=== PATIENT | male | born 1945 | race Caucasian/White ===

== ENCOUNTER 2017-06-30 06:44 | Observation (INO) | payer OTHER ==
[2017-06-30] MEDS ORDERED: ACETAMINOPHEN 500 MG TAB PO ONE (07:07)
[2017-06-30] MEDS ORDERED: ceFAZolin 2 GM/SWFI 2 GM/20 ML SYR IVP ONE (07:07)
[2017-06-30] MEDS ORDERED: LIDOCAINE 1% 2 ML INJ ID PRN (07:08)
[2017-06-30] MEDS ORDERED: LR 1,000 ML IV ONE (07:08)
--- NOTE | 2017-06-30 07:23 | PDGENHP ---
History and Physical - Chief Complaint Low back pain, painful hardware - History of Present Illness Patient is a 71 year old male with a history of L3-[address] Soares. He has been having terrible lower back pain and underwent a hardware block with Dr Ignacio. His block was temporarily effective and then his pain returned. He underwent a recent CT of the lumbar spine at [facility] which showed evidence of fusion L3-5. His pain is in his right lower back, he denies any constant radicular symptoms. History Information - Allergies/Home Medication List Allergies/Adverse Reactions: No Known Allergies Allergy (Verified 06/24/17 10:26) Home Medications: Aspirin [Aspirin 81mg (*)] 81 mg PO DAILY 06/19/17 [Last Taken 06/24/17] Atorvastatin Calcium [Lipitor 40 mg (*)] 40 mg PO DAILY 06/19/17 [Last Taken ] Gabapentin [Neurontin 300 MG (*)] 300 mg PO TID 06/19/17 [Last Taken 06/30/17] Hydrochlorothiazide [HCTZ (*)] 25 mg PO DAILY 06/19/17 [Last Taken 06/29/17] Irbesartan [Avapro 300 mg] 300 mg PO DAILY 06/19/17 [Last Taken 06/29/17] Levothyroxine [Synthroid 100 mcg (*)] 100 mcg PO DAILY06 06/19/17 [Last Taken ] Metoprolol Tartrate [Lopressor 50 mg (*)] 50 mg PO BID 06/19/17 [Last Taken ] [place]-3 Fatty Acids [Fish Oil 1000 mg (*)] 1,000 mg PO DAILY 06/19/17 [Last Taken 06/24/17] Omeprazole [Prilosec 20 mg] 20 mg PO DAILY 06/19/17 [Last Taken 06/30/17] amLODIPine BESYLATE [Norvasc 10 mg (*)] 10 mg PO DAILY 06/19/17 [Last Taken ] tiZANidine HCL [Zanaflex 2MG (*)] 4 mg PO DAILY 06/19/17 [Last Taken Unknown] I have personally reviewed and updated: medical history, social history, surgical history - Past Medical History no pertinent PMH - Surgical History Reports: neurological surgery - Social History Smoking Status: Former smoker Review of Systems Review of Systems: ROS: 10pt was reviewed & negative except for what was stated in HPI & below Physical Exam Physical Exam: AxO x3 PERRLA EOMI 5/5 BUE, BLE Sensation intact to light touch BLE Resp: normal work of breathing BP 151/79 HR 66 RR 16 O2 sat 96% on room air Constitutional: no apparent distress Eyes: PERRL Ears, Nose, Mouth, Throat: moist mucous membranes Cardiovascular: regular rate and rhythym Musculoskeletal: full muscle strength Neurologic: AAOx3, sensation intact bilaterally Assessment & Plan Assessment: Patient is a 71 year old male with history of L3-[address] Soares presents for L3-5 hardware removal. Plan: Patient is a 71 year old male with history of L3-[address] Soares. He has been experiencing painful lower back problems and underwent a hardware block which was effective with Dr Ignacio. CT lumbar spine performed at [facility] showed solid fusion of L3-5. He wishes to proceed with hardware removal with Dr Soares. Risks, benefits were discussed and consents were signed. Patient will be out-patient for this procedure and follow up with us in the office in 2 weeks for a post op visit.
[2017-06-30] MEDS ORDERED: THROMBIN (BOVINE) 5,000 UNIT VIAL TP ONE (07:32)
[2017-06-30] MEDS ORDERED: BACITRACIN 50,000 UNITS/10 ML SYR IRR ONE ×2 (07:33)
[2017-06-30] MEDS ORDERED: BUPIVACAINE 0.25% 30 ML SDV ONE ×2 (07:33→08:36)
[2017-06-30] MEDS ORDERED: ALBUMIN 5% 250 ML BOTTLE IV ONE (08:00)
[2017-06-30] MEDS ORDERED: DEXMEDETOMIDINE/NS 4MCG/ML 50 ML BTL IV ONE (08:01)
[2017-06-30] MEDS ORDERED: fentaNYL 100 MCG/2 ML INJ ONE (08:03)
[2017-06-30] MEDS ORDERED: MIDAZOLAM 2 MG/2 ML VIAL ONE (08:03)
[2017-06-30] MEDS ORDERED: PROPOFOL/EMULSION 500 MG/50 ML BOTTLE IV ONE (08:03)
[2017-06-30] MEDS ORDERED: ONDANSETRON 4 MG/2 ML VIAL ONE (09:14)
[2017-06-30] MEDS ORDERED: METOPROLOL TARTRATE 5 MG/5 ML INJ ONE (09:14)
[2017-06-30] MEDS ORDERED: LIDOCAINE 2% 5 ML SDV ONE (09:14)
[2017-06-30] MEDS ORDERED: SUGAMMADEX SODIUM 200 MG/2 ML VIAL IVP ONE (09:14)
[2017-06-30] MEDS ORDERED: ROCURONIUM 50 MG/5 ML VIAL ONE (09:14)
--- NOTE | 2017-06-30 09:21 | PDANEPAE ---
ANE Past Medical History - Cardiovascular History Hx Hypertension: Yes Hx Arrhythmias: No Hx Chest Pain: No Hx Coronary Artery / Peripheral Vascular Disease: Yes Hx CHF / Valvular Disease: No Hx Palpitations: No Cardiovascular History Comment: htn. hyperlipidemia. cad. pvd. hx of cabg 5v. stent x1. cough d/t LEVON inhibitor - Pulmonary History Hx COPD: No Hx Asthma/Reactive Airway Disease: No Hx Recent Upper Respiratory Infection: No Hx Oxygen in Use at Home: No Hx Sleep Apnea: No Sleep Apnea Screening Result - Last Documented: Positive Pulmonary History Comment: yan triggers - Neurologic History Hx Cerebrovascular Accident: Yes Hx Seizures: No Hx Dementia: No Neurologic History Comment: hx of TIA - Endocrine History Hx Diabetes: No Endocrine History Comment: hypothyroidism - Renal History Hx Renal Disorders: No - Liver History Hx Hepatic Disorders: No - Neurological & Psychiatric Hx Hx Neurological and Psychiatric Disorders: Yes Neurological / Psychiatric History Comment: depression - Cancer History Hx Cancer: No - Congenital Disorder History Hx Congenital Disorders: No - GI History Hx Gastrointestinal Disorders: Yes Gastrointestinal History Comment: reflux - Other Health History Other Health History: none - Chronic Pain History Chronic Pain: Yes (lower back) - Surgical History Prior Surgeries: t&a as child. knee scopes x2 in 80's. left knee surgery in 80 's. left STANTON 05/1990. right STANTON 11/1990. cabg 5v 1997. left STANTON revision 2000. right ulnar nerve 2000. right STANTON revision 07/2001. right wrist and elbow exploration 02/2002. ruptured appy 09/2005. exp lap 10/2005. lap rosetta 08/2006. spinal fusion 09/2008. spinal fusion 11/2014. ganglion cyst removal . removal of undesolved stitch 05/2016. cardiac stent 10/2010. cardiac cath 01/2017 for SOB ANE Review of Systems Review of Systems: - Exercise capacity METS (RN): 3 METS ANE Patient History - Allergies Allergies/Adverse Reactions: No Known Allergies Allergy (Verified 06/24/17 10:26) - Home Medications Home Medications: Aspirin [Aspirin 81mg (*)] 81 mg PO DAILY 06/19/17 [Last Taken 06/24/17] Atorvastatin Calcium [Lipitor 40 mg (*)] 40 mg PO DAILY 06/19/17 [Last Taken ] Gabapentin [Neurontin 300 MG (*)] 300 mg PO TID 06/19/17 [Last Taken 06/30/17] Hydrochlorothiazide [HCTZ (*)] 25 mg PO DAILY 06/19/17 [Last Taken 06/29/17] Irbesartan [Avapro 300 mg] 300 mg PO DAILY 06/19/17 [Last Taken 06/29/17] Levothyroxine [Synthroid 100 mcg (*)] 100 mcg PO DAILY06 06/19/17 [Last Taken ] Metoprolol Tartrate [Lopressor 50 mg (*)] 50 mg PO BID 06/19/17 [Last Taken ] [place]-3 Fatty Acids [Fish Oil 1000 mg (*)] 1,000 mg PO DAILY 06/19/17 [Last Taken 06/24/17] Omeprazole [Prilosec 20 mg] 20 mg PO DAILY 06/19/17 [Last Taken 06/30/17] amLODIPine BESYLATE [Norvasc 10 mg (*)] 10 mg PO DAILY 06/19/17 [Last Taken ] tiZANidine HCL [Zanaflex 2MG (*)] 4 mg PO DAILY 06/19/17 [Last Taken Unknown] - NPO status NPO Since - Liquids (Date): 06/29/17 NPO Since - Liquids (Time): 21:00 NPO Since - Solids (Date): 06/29/17 NPO Since - Solids (Time): 19:00 - Smoking Hx Smoking Status: Former smoker - Family Anes Hx Family Hx Anesthesia Complications: unknown- adopted ANE Labs/Vital Signs - Vital Signs Blood Pressure: 151/79 Heart Rate: 66 Respiratory Rate: 16 O2 Sat (%): 96 Height: 179.07 cm Weight: 90.718 kg ANE Physical Exam - Airway Neck exam: decreased ROM, short neck Mallampati Score: Class 2 Mouth exam: poor dentition - Pulmonary Pulmonary: no respiratory distress, no rales or rhonchi, reduced air movement - Cardiovascular Cardiovascular: regular rate and rhythym, no murmur, rub, or gallop, pulses symmetric bilaterally - ASA Status ASA Status: III ANE Anesthesia Plan Anesthesia Plan: general endotracheal anesthesia
[2017-06-30] MEDS ORDERED: ALBUTEROL 3 ML DEYVIAL IH PRN (09:31)
[2017-06-30] MEDS ORDERED: OXYCODONE/APAP 5/325 TAB PO PRN (09:31)
[2017-06-30] MEDS ORDERED: DEXAMETHASONE 4 MG/ML VIAL IVP PRN (09:31)
[2017-06-30] MEDS ORDERED: MEPERIDINE 25 MG/ML SYR IVP PRN (09:31)
[2017-06-30] MEDS ORDERED: LR 500 ML IV PRN (09:31)
[2017-06-30] MEDS ORDERED: HYDROCODONE/APAP 5/325 TAB PO PRN (09:31)
[2017-06-30] MEDS ORDERED: NALOXONE HCL 0.4 MG/ML INJ IVP PRN (09:31)
[2017-06-30] MEDS ORDERED: ONDANSETRON 4 MG/2 ML VIAL IVP PRN (09:31)
[2017-06-30] MEDS ORDERED: fentaNYL 100 MCG/2 ML INJ IVP PRN (09:31)
--- NOTE | 2017-06-30 10:20 | POSTOPPROG ---
Post Op Note Date of Operation: 06/30/17 Surgeon: Lorri Soares Customer Operations Manager: Shannan Lin NP Anesthesia: GET(General Endotracheal) Pre-op Diagnosis: Painful hardware Procedure: L3-5 Hardware removal Inf/Abcess present in the surg proc area at time of surgery?: No Depth: Deep Incisional (Fascial) EBL: 50-100 Total fluids administered: see anesthesia Complications: none Date of Surgery: 06/30/17 Post Op Day: 0 Assessment/Plan: 71 year old male s/p L3-5 hardware removal for low back pain Plan: -DC home when patient meets criteria -May reinforce dressing as needed -Please call neurosurgery with any questions/concerns Subjective: Patient waking up in PACU Objective: Patient waking up in PACU Following commands 5/5 BUE, BLE Sensation intact to light touch BLE Appropriate Neuro Check Frequency Ordered: Yes
[2017-06-30 10:24] VITALS: TEMP 97.7
--- NOTE | 2017-06-30 11:01 | POSTANESTH ---
Post Anesthetic Evaluation Cardiovascular Status: Normal, Stable, Similar to Pre-Op Cond Respiratory Status: Normal, Stable, Similar to Pre-op Cond. Level of Consciousness/Mental Status: Can Participate in Eval Pain Control: Adequate, Prn Tx Ordered Nausea/Vomiting Control: Adequate, Prn Tx Ordered Complications Possibly Related to Anesthesia: None Noted
[2017-06-30 11:05] VITALS: PULSE 62; RESP 18; O2SAT 94
[2017-06-30 11:23] VITALS: BP 92/65
--- NOTE | 2017-06-30 14:32 | GOP ---
[f rep st] OPERATIVE REPORT DATE OF OPERATION: 06/30/2017 SURGEON: Kaiden Soares MD NEUROSURGEON: Kaiden Soares MD PROSTHETIC AIDE: Shannan Lin NP PREOPERATIVE DIAGNOSIS: Painful lumbar hardware. POSTOPERATIVE DIAGNOSIS: Painful lumbar hardware PROCEDURE PERFORMED: Removal of posterior segmental hardware position L3, L4, L5, exploration lumbar fusion, L3, L4, L5. FINDINGS: ESTIMATED BLOOD LOSS: 50 cc. INDICATIONS: The patient is a 71-year-old who has had a successful L3, L4, L5-S1 fusion. He had elías dware at L3, L4, L5 that responded to a hardware block and he desired to have this removed. He was h aving axial low back pain related to the hardware. There was no evidence of hardware loosening. The re was no evidence of pseudoarthrosis on CT scan and he did want to have it removed. He knew there w as risk that his pain would continue. He knew there was a risk that he could fracture through the fu tiffanie mass following hardware removal, although the risk was low. He knew there was risk of infection . He wanted to proceed. DESCRIPTION OF PROCEDURE: The patient was taken to the operating room, placed in the supine position . General anesthesia was begun. He was flipped prone onto the Doug table. Care was taken to pad all points of contact. His back was sterilely prepped and draped in the usual fashion. Local anest hesia was infiltrated in the skin. The subcutaneous tissue was dissected using a plasma blade down t o the fascia and a subperiosteal dissection was made down through the scar tissue of the back. We alina ided the paraspinal musculature. We simply followed the scar in a midline fashion out to the hardwar e, removed some bone on top of the hardware and then removed all the cap screws. There was no eviden ce of any hardware loosening whatsoever. We popped the rods out and then removed each of the screws. They were all firmly seated in bone and the underlying bone was solid. There was no evidence of mo tion whatsoever at L3, 4 or 5. We were happy with the quality of the posterolateral fusion mass. The hardware was sent to central processing for cleaning and will be returned to the patient. We then i rrigated with antibiotic saline solution and closed the incision in multiple layers using Vicryl sutu res. Steri-Strips were applied to the skin. The patient was reversed from anesthesia, extubated, and transferred to recovery room in stable condition. COMPLICATIONS: None. INSTRUMENTATION USED: [employer] 4.75 mm [employer]ara. /[id number]/MODL
--- NOTE | 2017-07-01 08:40 | ASDISCHSUM ---
Discharge Information Plan Status:Home with No Needs Medically Cleared to Leave: Discharge Date:06/30/2017 11:50 AM CM D/C Disposition:Home, Routine, Self-Care ADT D/C Disposition:Home, Routine, Self-Care Projected Discharge Date:06/30/2017 11:50 AM Transportation at D/C:Family Discharge Delay Reason: Follow-Up Date:06/30/2017 11:50 AM Discharge Slot: Final Diagnosis: Placement Information Patient Contact Information Contact Name:GÓMEZ Relationship: Address:[address] [place] [address] Work Phone: [facility] Phone: [facility]/Zip Code:[place] [address] Email: Financial Information Financial Class:MC Primary Plan Desc:MEDICARE OUTPATIENT Primary Plan Number:[id number] Secondary Plan Desc:[employer] [place] HMO OPEN ACC LOCAL Secondary Plan Number:[id number] Assessment Information Intervention Information
== END 2017-06-30 11:50 | disposition home or self-care (01) ==
LOC: F3N 06:44
PROVIDERS: ADMIT Neurological Surgery; ATTEND Neurological Surgery
PROC: 0SP00AZ Removal of Interbody Fusion Device from Lumbar Vertebral Joint, Open Approach (ICD-10-PCS; principal; 2017-06-30 08:15)
DX: T85.848A Pain due to other internal prosthetic devices, implants and grafts, initial encounter (principal); I10 Essential (primary) hypertension; E78.5 Hyperlipidemia, unspecified; I25.10 Atherosclerotic heart disease of native coronary artery without angina pectoris; G47.33 Obstructive sleep apnea (adult) (pediatric); E03.9 Hypothyroidism, unspecified; Z95.1 Presence of aortocoronary bypass graft; Z95.5 Presence of coronary angioplasty implant and graft; Z87.891 Personal history of nicotine dependence
CPT/HCPCS: 22852; 76001; J0171; J0690; J2250; J2405; J2704; J3010; P9041